=== PATIENT | male | born 1990 | race African-American/Black ===

== ENCOUNTER 2017-02-15 16:14 | Emergency (ER) | payer SELFPAY ==
[~2017-02-15] VITALS: Ht 177.8 cm; Wt 76.0 kg
[2017-02-15] MEDS ORDERED: ACETAMINOPHEN 500MG TABLET PO ONE (18:15)
[2017-02-15] MEDS ORDERED: TETANUS, DIPHTHERIA, PERTUSSIS VAC/PF 0.5ML (>7YR OLD) IM ONE (18:15)
[2017-02-15] MEDS ORDERED: LIDOCAINE HCL 1% 20ML VIAL (Pyxis) INJ INFIL ONE (21:15)
[2017-02-15 21:39] VITALS: BP 108/59
== END 2017-02-15 22:43 | disposition home or self-care (01) ==
LOC: ER 16:14
DX: S01.01XA Laceration without foreign body of scalp, initial encounter (principal); S50.02XA Contusion of left elbow, initial encounter; H44.521 Atrophy of globe, right eye; X99.8XXA Assault by other sharp object, initial encounter; Y93.89 Activity, other specified; Y92.89 Other specified places as the place of occurrence of the external cause; Z23 Encounter for immunization; H26.9 Unspecified cataract
CPT/HCPCS: 12001; 70450; 70486; 90471; 90715; 99284; J3490; Z7610